=== PATIENT | male | born 1945 | race Caucasian/White ===

== ENCOUNTER → 2016-12-12 | Emergency (ER) | payer MEDICARE, OTHER | END | disposition disaster alternative care site (69) | LOC: GAMB 12:29 | DX: E10.641 Type 1 diabetes mellitus with hypoglycemia with coma (principal); R41.82 Altered mental status, unspecified; Z79.4 Long term (current) use of insulin ==

== ENCOUNTER → 2016-12-13 | Emergency (ER) | payer MEDICARE, OTHER | END | disposition disaster alternative care site (69) | LOC: GAMB 11:14 | DX: E10.641 Type 1 diabetes mellitus with hypoglycemia with coma (principal); Z79.4 Long term (current) use of insulin ==

== ENCOUNTER → 2016-12-27 | Outpatient (CLI) | payer MEDICARE, OTHER | END | disposition disaster alternative care site (69) | LOC: GAMB 18:33 | DX: R41.82 Altered mental status, unspecified (principal); E10.649 Type 1 diabetes mellitus with hypoglycemia without coma; I10 Essential (primary) hypertension; Z95.0 Presence of cardiac pacemaker; Z79.4 Long term (current) use of insulin; Z79.899 Other long term (current) drug therapy ==